=== PATIENT | female | born 1990 | race Caucasian/White ===

== ENCOUNTER 2018-01-06 18:31 | Inpatient (IN) | payer OTHER ==
[2018-01-06] MEDS ORDERED: Citric Acid/Sodium Citrate Solution 30 ML Cup PO ONE (19:22)
[2018-01-06] MEDS ORDERED: Sodium Chloride 0.9% 10 ML Syringe FLUSH PRN (19:22)
[2018-01-06] MEDS ORDERED: Sodium Chloride 0.9% 2.5 ML Syringe FLUSH PRN (19:22)
[2018-01-06] MEDS ORDERED: Oxytocin/0.9 % Sodium Chloride 30 UNIT/500 ML BAG IV SCH (19:30)
[2018-01-06] MEDS: Lactated Ringers 1,000 ML IV SCH ×2 (19:40→20:06)
[2018-01-06] MEDS ORDERED: Phenylephrine 1% 10 MG/ML SDV ONE (19:42)
[2018-01-06] MEDS ORDERED: ceFAZolin/Dextrose,Iso-Osmotic 2 GM/50 ML Duplex Bag IV ONE (19:42)
[2018-01-06] MEDS ORDERED: Morphine PF 1 MG/ML Amp ONE (19:46)
[2018-01-06] MEDS ORDERED: Oxytocin/0.9 % Sodium Chloride 30 UNIT/500 ML BAG ONE (19:51)
[2018-01-06] MEDS ORDERED: Citric Acid/Sodium Citrate Solution 30 ML Cup ONE (19:52)
--- NOTE | 2018-01-06 19:59 | PCM.PREANE ---
Preanesthetic Assessment - Procedure Proposed Procedure: - Anesthesia/Transfusion/Family Hx Anesthesia History: Prior Anesthesia Without Reaction Family History of Anesthesia Reaction: No - Review of Systems Other: Reports: None - Physical Assessment NPO Status Date: 01/06/18 NPO Status Time: 15:00 Height: 5 ft 2 in Weight: 78.471 kg ASA Class: 2 Mental Status: Alert & Oriented x3 Airway Class: Mallampati = 1 Dentition: Reports: Normal Dentition Thyro-Mental Finger Breadths: 3 Mouth Opening Finger Breadths: 3 ROM/Head Extension: Full - Lab Values: Laboratory Last Values WBC 11.53 K/uL (4.0-11.0) H 01/06/18 19:39 RBC 4.11 M/uL (4.30-5.90) L 01/06/18 19:39 Hgb 13.1 g/dL (12.0-16.0) 01/06/18 19:39 Hct 36.9 % (36.0-46.0) 01/06/18 19:39 MCV 89.8 fL (80.0-98.0) 01/06/18 19:39 MCH 31.9 pg (27.0-32.0) 01/06/18 19:39 MCHC 35.5 g/dL (31.0-37.0) 01/06/18 19:39 RDW Std Deviation 41.1 fl (28.0-62.0) 01/06/18 19:39 RDW Coeff of Osmar 13 % (11.0-15.0) 01/06/18 19:39 Plt Count 211 K/uL (150-400) 01/06/18 19:39 MPV 10.40 fL (7.40-12.00) 01/06/18 19:39 Nucleated RBC % 0.0 /100WBC 01/06/18 19:39 Nucleated RBCs # 0 K/uL 01/06/18 19:39 Membrane Rupture POSITIVE 01/06/18 18:58 - Allergies Allergies/Adverse Reactions: Allergies Allergy/AdvReac Type Severity Reaction Status Date / Time No Known Allergies Allergy Verified 07/09/15 12:05 - Blood Blood Available: Yes Product(s) Available: PRBC - Acknowledgements Anesthesia Type Planned: Spinal (with duramorph) Pt an Appropriate Candidate for the Planned Anesthesia: Yes Alternatives and Risks of Anesthesia Discussed w Pt/Guardian: Yes Pt/Guardian Understands and Agrees with Anesthesia Plan: Yes PreAnesthesia Questionnaire HEENT History: Reports: Impaired Vision Other HEENT History: wears glasses Cardiovascular History: Reports: None Respiratory History: Reports: None Gastrointestinal History: Reports: GERD Other Gastrointestinal History: during Genitourinary History: Reports: None GENETICS NURSE History: Reports: Musculoskeletal History: Reports: None Neurological History: Reports: None Psychiatric History: Reports: None Endocrine/Metabolic History: Reports: None Hematologic History: Reports: None Immunologic History: Reports: None Oncologic (Cancer) History: Reports: None Dermatologic History: Reports: None - Infectious Disease History Infectious Disease History: Reports: Chicken Pox - Past Surgical History HEENT Surgical History: Reports: Oral Surgery Female Surgical History: Reports: Section (x3) - HOME MEDS Home Medications: Home Meds Acetaminophen [Tylenol Extra Strength] 2 tab PO Q6H PRN 07/09/15 [History] Docusate Sodium 1 cap PO DAILY 07/09/15 [History] Pnv95/Iron Fum/Folic Acid [ Caplet] 1 tab PO DAILY 07/09/15 [History] Ranitidine HCl [Zantac 75] 1 tab PO DAILY 07/09/15 [History] Acetaminophen/oxyCODONE [Percocet 325-5 MG] 1 tab PO Q4H PRN #30 tablet [Rx] Ibuprofen [Motrin] 800 mg PO Q8H PRN #30 tablet 07/13/15 [Rx] - CURRENT (IN HOUSE) MEDS Current Meds: Current Medications Oxytocin/Sodium Chloride (Oxytocin 30 Unit/500 Ml-Ns) 30 unit in 500 mls @ 250 mls/hr IV TITRATE ROXY Lactated Ringer's (Ringers, Lactated) 1,000 mls @ 500 mls/hr IV BOLUS ROXY Last Admin: 01/06/18 19:40 Dose: 999 mls/hr Sodium Chloride (Saline Flush) 10 ml FLUSH ASDIRECTED PRN PRN Reason: Keep Vein Open Sodium Chloride (Saline Flush) 2.5 ml FLUSH ASDIRECTED PRN PRN Reason: Keep Vein Open Discontinued Medications Cefazolin Sodium/Dextrose (Ancef) Confirm Administered Dose 2 gm IV .STK-MED ONE Stop: 01/06/18 19:43 Citric Acid/Sodium Citrate (Bicitra Solution) 30 ml PO ONETIME ONE Stop: 01/06/18 19:23 Citric Acid/Sodium Citrate (Bicitra Solution) Confirm Administered Dose 30 ml .ROUTE .STK-MED ONE Stop: 01/06/18 19:53 Oxytocin/Sodium Chloride (Oxytocin 30 Unit/500 Ml-Ns) Confirm Administered Dose 30 unit in 500 mls @ as directed .ROUTE .STK-MED ONE Stop: 01/06/18 19:52 Morphine Sulfate (Duramorph Pf) Confirm Administered Dose 1 mg .ROUTE .STK-MED ONE Stop: 01/06/18 19:47 Phenylephrine HCl (Nakul-Synephrine) Confirm Administered Dose 10 mg .ROUTE .STK- MED ONE Stop: 01/06/18 19:43
[2018-01-06] MEDS ORDERED: Dexamethasone 4 MG/ML 5 ML MDV ONE (20:25)
[2018-01-06] MEDS ORDERED: Ondansetron 4 MG/2 ML SDV ONE (20:25)
[2018-01-06] MEDS ORDERED: diphenhydrAMINE 50 MG/ML SDV ONE (20:25)
[2018-01-06] MEDS ORDERED: Scopolamine 1.5 MG Transdermal Patch ONE (21:29)
[2018-01-06] MEDS ORDERED: fentaNYL 250 MCG/5 ML SDV ONE (21:44)
[2018-01-06] MEDS ORDERED: Nalbuphine 10 MG/1 ML Vial IVPUSH PRN (22:27)
[2018-01-06] MEDS ORDERED: Naloxone 0.4 MG/ML Syringe IVPUSH PRN (22:27)
[2018-01-06] MEDS ORDERED: diphenhydrAMINE 50 MG/ML SDV IVPUSH PRN ×2 (22:27→22:31)
[2018-01-06] MEDS ORDERED: fentaNYL 100 MCG/2 ML SDV IVPUSH PRN (22:28)
--- NOTE | 2018-01-06 22:29 | PCM.POSTAN ---
POST ANESTHESIA ASSESSMENT - MENTAL STATUS Mental Status: Alert, Oriented - RESPIRATORY Respiratory Status: Respiratory Rate WNL, Airway Patent, O2 Saturation Stable - CARDIOVASCULAR CV Status: Pulse Rate WNL, Blood Pressure Stable - GASTROINTESTINAL GI Status: No Symptoms - PAIN Pain Score: 0 - POST OP HYDRATION Hydration Status: Adequate & Stable
[2018-01-06] MEDS ORDERED: Lanolin 100% Cream 7 GM Tube TOP PRN (22:31)
[2018-01-06] MEDS ORDERED: Acetaminophen/oxyCODONE 325-5 MG Tab PO PRN ×2 (22:31)
[2018-01-06] MEDS ORDERED: Bisacodyl 10 MG Supp RECTAL PRN (22:31)
[2018-01-06] MEDS ORDERED: Ondansetron 4 MG/2 ML SDV IV PRN (22:31)
[2018-01-06] MEDS ORDERED: Measles, Mumps & Rubella Vaccine 0.5 ML SDV SUBCUT ONE (22:39)
[2018-01-06] MEDS: Ketorolac 30 MG/ML SDV IVPUSH SCH (22:42)
[2018-01-06] MEDS ORDERED: Lactated Ringers 1,000 ML IV SCH (22:45)
--- NOTE | 2018-01-06 22:52 | PCM.OPNOTE ---
- General Post-Op/Procedure Note Date of Surgery/Procedure: 01/06/18 Operative Procedure(s): Repeat section with bilateral salpingectomy Findings: Male , Wt 3690grams, Apgars 9 and 9. Thin lower uterine segment adherent to the parietal peritoneum anteriorly. Normal appearing ovaries bilaterally. The left fallopian tube (distal 1/3) was flushed on the left ovary and the complex in turn adherent to the left lateral uterine wall. Pre Op Diagnosis: 38 weeks and 4 days. PROM. Previous x 3. Desires premanent sterilization Post-Op Diagnosis: Same Anesthesia Technique: Spinal Primary Surgeon: Victorina Martinez Pathology: Right fallopian tube Part of the left fallopian( proximal 2/3) and the fimbrial end Fluid Replacement, Intraop: 2,400 Output, Urine Amount: 300 EBL in mLs: 1,000 Complications: None Condition: Good Free Text/Narrative:: Intake & Output 01/06/18 01/06/18 01/06/18 06:59 14:59 22:59 Output Total 300 Balance -300
--- NOTE | 2018-01-07 00:27 | OR ---
SURGEON: Victorina Martinez MD DATE OF PROCEDURE: 01/06/2018 PREOPERATIVE DIAGNOSES: 1. Term at 38 weeks and 4 days gestation. 2. Premature rupture of membrane. 3. Previous section x3. 4. Desire permanent sterilization. POSTOPERATIVE DIAGNOSES: 1. Term at 38 weeks and 4 days gestation. 2. Premature rupture of membrane. 3. Previous section x3. 4. Desire permanent sterilization. 5. Delivered. PROCEDURE: Low transverse section via Pfannenstiel with bilateral salpingectomy. ANESTHESIA: Spinal. ESTIMATED BLOOD LOSS: 1000 mL. IV FLUIDS: 2400 mL of crystalloid. URINE OUTPUT: 300 mL clear at the end of the procedure. COMPLICATIONS: None. DISPOSITION: Stable to recovery room. INDICATION: The patient is a 27-year-old, G5, P3-0-1-3, who presented to Labor and delivery at 38 weeks and 4 days gestation with a history of leakage of clear amniotic fluid, confirmed to be grossly ruptured and fingertip on vaginal examination. The patient has a history of three previous sections and was booked for repeat section on the 11 of January. She is also desirous of permanent sterilization in the form of bilateral salpingectomy, which has been approved by the ethics committee. Patient confirmed desire to proceed with the sterilization and she was consented appropriately for a repeat section with bilateral salpingectomy. FINDINGS: Male infant in cephalic presentation, delivered in left occipital transverse position. Clear amniotic fluid at delivery.No nuchal cord.Weight 3690g, score 9 and 9 at 1 and 5 minutes respectively.Dense adhesions between the rectus muscle and parietal peritoneum.Grossly normal appearing uterus with very thin lower segment with numerous varicosities. The lower uterine segment was adherent anteriorly to the parietal peritoneum. The distal one-third of the left tube was flushed onto the left ovary anteriorly and this complex was in- turn adherent to the left lateral uterine wall. Normal appearing right tube and normal ovaries bilaterally. DESCRIPTION OF PROCEDURE: The patient was taken to the operating room where spinal anesthesia was performed and found to be adequate. She received 2 g of Ancef. SCDs were placed. She was prepped and draped in the usual sterile fashion in dorsal supine position with a leftward tilt. Appropriate time-out was held. A Pfannenstiel skin incision was made with a scalpel along her old scar and carried through to the underlying layer of fascia with the Bovie. The fascia was incised in the midline and extended laterally with the Bovie and the Head.The superior aspect of this incision was grasped with Kassie clamps, elevated, and underlying rectus muscles were dissected off with the scalpel. Attention was turned to the inferior aspect of this incision which in similar fashion was dissected off with the scalpel. The rectus muscle was then elevated using two Allies on either side and was then in the midline using a scalpel until a window was created in the parietal peritoneum. Digital sweep on the line area revealed no adherent vital organ.This incision was then extended downward carefully and upwards and then subsequently stretched laterally manually. Once this was done, the lower uterine segment was noted to be thin and adherent to the parietal peritoneum.This adhesion was then carefully taken down with the Metzenbaum scissors and pushed further down creating somewhat of a bladder flap. The Billy O self-retaining retractor was then inserted into the peritoneal cavity. The lower uterine segment was then incised in a transverse fashion with the scalpel and extended upwards and downwards distally. The infant's head was then delivered atraumatically followed by the rest of the body without difficulty. The nostril and mouth were bulb suctioned on the abdomen. The cord was double clamped and cut and the infant was handed over to Dr. Hair, the ic engineer on-call. Cord blood and gas samples were obtained. The placenta was removed spontaneously via massage. The uterus was then cleaned of all clots and debris. The placenta bed was noted to be bleeding. This area was then overrun with 0 Vicryl sutures using interrupted stitches. It was hemostatic thereafter. The edges of the uterine incision were then identified and this layer was closed in 2 layers using 0 Vicryl suture. The first layer was performed in a running locked fashion and second imbricating layer was performed to obtain excellent hemostasis. A couple of [id number] hemostatic stitches were placed using 0 Vicryl sutures in the lower uterine segment to ligate the bleeding vessels. Once this was done, the hysterotomy site was found to have excellent hemostasis. The attempt to locate the tubes with the Billy retractor in situ was unsuccessful, so the Billy retractor was then removed and the uterus was exteriorized. Aforementioned findings of the left tube were noted. After confirming with the patient about her desire for her tubes to be removed, the right salpingectomy was performed using the Harmonic device. The vascular bed on the mesosalpinx on the right side had to be oversewn with 3-0 Vicryl suture to obtain excellent hemostasis. Attention was then turned to the left side with the aforementioned findings noted. The fimbrial end was then dissected off carefully and this was excised. Using Babcocks, I was able to trace the proximal 2/3 and then proceeded to perform a partial salpingectomy on the left side. The areas were found to be hemostatic. The uterus was then returned into the abdominal cavity after the gutters had been cleared of all clots and debris. Copious irrigation was performed. The peritoneal edges were found to be flushed onto the rectus muscle, so this area was closed en claudio using 2-0 Vicryl suture in a running fashion. The subfascial layer was found to have excellent hemostasis. The fascia was then closed with 0 Vicryl suture in a running fashion. Thus, subcuticular layer was made hemostatic with electrocautery. The skin was closed with subcu stitches with 4-0 Monocryl. The patient tolerated the procedure well. Sponge, instrument, and needle counts were correct at the end of the procedure. The patient was taken to recovery room in stable condition and the baby to the nursery in a stable condition. SHIKHA / MIRIAM /[id number] MTDD
[2018-01-07] MEDS: Ketorolac 30 MG/ML SDV IVPUSH SCH ×4 (04:55→23:06)
--- NOTE | 2018-01-07 07:59 | PCM.PNPP ---
- General Info Date of Service: 01/07/18 Functional Status: Reports: Pain Controlled, Tolerating Diet, Ambulating, Urinating - Review of Systems General: Denies: Fever, Weakness, Fatigue Pulmonary: Denies: Shortness of Breath, Pleuritic Chest Pain, Cough Cardiovascular: Denies: Chest Pain, Palpitations, Dyspnea on Exertion Gastrointestinal: Denies: Abdominal Pain Genitourinary: Denies: Dysuria - General Info Date of Service: 01/07/18 - Patient Data Vital Signs - Most Recent: Last Vital Signs Temp 36.7 C 01/07/18 04:40 Pulse 83 01/07/18 07:00 Resp 16 01/07/18 07:00 BP 115/59 L 01/07/18 04:40 Pulse Ox 99 01/07/18 07:00 Weight - Most Recent: 78.471 kg I&O - Last 24 Hours: Intake & Output 01/06/18 01/07/18 01/07/18 22:59 06:59 14:59 Intake Total 5000 500 Output Total 1700 900 Balance 3300 -400 Lab Results - Last 24 Hours: Laboratory Results - last 24 hr 01/06/18 01/06/18 01/06/18 Range/Units 18:58 19:39 19:39 WBC 11.53 H (4.0-11.0) K/uL RBC 4.11 L (4.30-5.90) M/uL Hgb 13.1 (12.0-16.0) g/dL Hct 36.9 (36.0-46.0) % MCV 89.8 (80.0-98.0) fL MCH 31.9 (27.0-32.0) pg MCHC 35.5 (31.0-37.0) g/dL RDW Std Deviation 41.1 (28.0-62.0) fl RDW Coeff of Osmar 13 (11.0-15.0) % Plt Count 211 (150-400) K/uL MPV 10.40 (7.40-12.00) fL Nucleated RBC % 0.0 /100WBC Nucleated RBCs # 0 K/uL Cord ABG pH (7.18-7.38) Cord ABG Base Excess (-10--2) Cord VBG pH (7.25-7.45) Cord VBG Base Excess (-10--2) Membrane Rupture POSITIVE Blood Type O POSITIVE Antibody Screen NEGATIVE 01/06/18 01/07/18 Range/Units 21:03 05:50 WBC (4.0-11.0) K/uL RBC (4.30-5.90) M/uL Hgb 9.4 L (12.0-16.0) g/dL Hct 27.0 L (36.0-46.0) % MCV (80.0-98.0) fL MCH (27.0-32.0) pg MCHC (31.0-37.0) g/dL RDW Std Deviation (28.0-62.0) fl RDW Coeff of Osmar (11.0-15.0) % Plt Count (150-400) K/uL MPV (7.40-12.00) fL Nucleated RBC % /100WBC Nucleated RBCs # K/uL Cord ABG pH 7.318 (7.18-7.38) Cord ABG Base Excess -3 (-10--2) Cord VBG pH 7.364 (7.25-7.45) Cord VBG Base Excess -5 (-10--2) Membrane Rupture Blood Type Antibody Screen Med Orders - Current: Current Medications Bisacodyl (Dulcolax) 10 mg RECTAL ONETIME PRN PRN Reason: Constipation Diphenhydramine HCl (Benadryl) 25 mg IVPUSH Q4H PRN PRN Reason: Itching Stop: 01/07/18 22:27 Diphenhydramine HCl (Benadryl) 25 mg IVPUSH Q6H PRN PRN Reason: Itching or Nausea Docusate Sodium (Colace) 100 mg PO BID [facility] Emollient Ointment (Lansinoh Hpa) 0 gm TOP ASDIRECTED PRN PRN Reason: Sore Nipples Fentanyl (Sublimaze) 25 - 50 mcg IVPUSH Q30M PRN PRN Reason: Pain Lactated Ringer's (Ringers, Lactated) 1,000 mls @ 125 mls/hr IV ASDIRECTED ROXY Ibuprofen (Motrin) 800 mg PO Q8H PRN PRN Reason: mild pain or fever Ketorolac Tromethamine (Toradol) 30 mg IVPUSH Q6H [facility] Stop: 01/07/18 22:46 Last Admin: 01/07/18 04:55 Dose: 30 mg Nalbuphine HCl (Nubain) 5 mg IVPUSH Q3H PRN PRN Reason: Pruritis Stop: 01/07/18 22:27 Naloxone HCl (Narcan) 0.1 mg IVPUSH ONETIME PRN PRN Reason: Other Stop: 01/07/18 22:28 Ondansetron HCl (Zofran) 4 mg IV Q4H PRN PRN Reason: Nausea/Vomiting Oxycodone/Acetaminophen (Percocet 325-5 Mg) 1 - 2 tab PO Q6H PRN PRN Reason: Pain Stop: 01/08/18 14:00 Oxycodone/Acetaminophen (Percocet 325-5 Mg) 1 tab PO Q4H PRN PRN Reason: Pain (moderate 4-6) Oxycodone/Acetaminophen (Percocet 325-5 Mg) 2 tab PO Q4H PRN PRN Reason: Pain (moderate 4-6) Discontinued Medications Cefazolin Sodium/Dextrose (Ancef) Confirm Administered Dose 2 gm IV .STK-MED ONE Stop: 01/06/18 19:43 Citric Acid/Sodium Citrate (Bicitra Solution) 30 ml PO ONETIME ONE Stop: 01/06/18 19:23 Last Admin: 01/06/18 22:17 Dose: Not Given Citric Acid/Sodium Citrate (Bicitra Solution) Confirm Administered Dose 30 ml .ROUTE .STK-MED ONE Stop: 01/06/18 19:53 Last Admin: 01/06/18 20:07 Dose: 30 ml Dexamethasone (Dexamethasone) Confirm Administered Dose 20 mg .ROUTE .STK-MED ONE Stop: 01/06/18 20:26 Diphenhydramine HCl (Benadryl) Confirm Administered Dose 50 mg .ROUTE .STK-MED ONE Stop: 01/06/18 20:26 Fentanyl (Sublimaze) Confirm Administered Dose 250 mcg .ROUTE .STK-MED ONE Stop: 01/06/18 21:45 Oxytocin/Sodium Chloride (Oxytocin 30 Unit/500 Ml-Ns) 30 unit in 500 mls @ 250 mls/hr IV TITRATE ROXY Lactated Ringer's (Ringers, Lactated) 1,000 mls @ 500 mls/hr IV BOLUS [facility] Last Infusion: 01/06/18 21:00 Dose: Infused Oxytocin/Sodium Chloride (Oxytocin 30 Unit/500 Ml-Ns) Confirm Administered Dose 30 unit in 500 mls @ as directed .ROUTE .STK-MED ONE Stop: 01/06/18 19:52 Measles/Mumps/Rubella Vaccine Live (M-M-R Ii Vaccine) 0.5 ml SUBCUT .ONCE ONE Stop: 01/06/18 22:40 Morphine Sulfate (Duramorph Pf) Confirm Administered Dose 1 mg .ROUTE .STK-MED ONE Stop: 01/06/18 19:47 Ondansetron HCl (Zofran) Confirm Administered Dose 4 mg .ROUTE .STK-MED ONE Stop: 01/06/18 20:26 Phenylephrine HCl (Nakul-Synephrine) Confirm Administered Dose 10 mg .ROUTE .STK- MED ONE Stop: 01/06/18 19:43 Scopolamine (Transderm-Scop) Confirm Administered Dose 1.5 mg .ROUTE .STK-MED ONE Stop: 01/06/18 21:30 Sodium Chloride (Saline Flush) 10 ml FLUSH ASDIRECTED PRN PRN Reason: Keep Vein Open Sodium Chloride (Saline Flush) 2.5 ml FLUSH ASDIRECTED PRN PRN Reason: Keep Vein Open - Interaction Infant Disposition, : in Room with Family Interaction: Holding Infant Feeding: Breastfed ; Nursed Well Support Person: - Recovery Exam Fundal Tone: Firm Fundal Level: At Umbilicus Fundal Placement: Midline Lochia Amount: Scant Lochia Color: Rubra/Red Bladder Status: Nonpalpable Urinary Elimination: Indwelling Catheter - Exam General: Alert, Oriented Neck: Supple Lungs: Clear to Auscultation, Normal Respiratory Effort Cardiovascular: Regular Rate, Regular Rhythm GI/Abdominal Exam: Normal Bowel Sounds, Soft, Non-Tender, No Mass Skin: Warm, Dry, Intact Psy/Mental Status: Alert - Problem List & Annotations (1) delivery delivered SNOMED Code(s): 560966942 Code(s): O82 - ENCOUNTER FOR DELIVERY WITHOUT INDICATION Status: Acute Current Visit: No - Problem List Review Problem List Initiated/Reviewed/Updated: Yes - Assessment Assessment:: POD #1 s/p RLTCS with bilateral salpingectomy. Minimal pain and lochia. Breast feeding well. Remove vaca today. - Plan Plan:: Continue routine post-op cares
[2018-01-07] MEDS: Docusate Sodium 100 MG Cap PO SCH ×2 (10:13→21:56)
[2018-01-07] MEDS: Acetaminophen/oxyCODONE 325-5 MG Tab PO PRN ×2 (15:35→21:56)
--- NOTE | 2018-01-07 17:47 | PCM48HPAN ---
Post Anesthesia Note - EVALUATION WITHIN 48HRS OF ANESTHETIC Vital Signs in Normal Range: Yes Patient Participated in Evaluation: Yes Respiratory Function Stable: Yes Airway Patent: Yes Cardiovascular Function Stable: Yes Hydration Status Stable: Yes Pain Control Satisfactory: Yes Nausea and Vomiting Control Satisfactory: Yes Mental Status Recovered: Yes Resp Rate: 17
[2018-01-08] MEDS ORDERED: Ibuprofen 800 MG Tab PO PRN (05:00)
[2018-01-08 08:38] VITALS: BP 116/67
[2018-01-08] MEDS: Docusate Sodium 100 MG Cap PO SCH (09:38)
--- NOTE | 2018-01-08 09:49 | PCM.PNPP ---
- General Info Date of Service: 01/08/18 Functional Status: Reports: Pain Controlled, Tolerating Diet, Ambulating, Urinating - Review of Systems General: Reports: No Symptoms HEENT: Reports: No Symptoms Pulmonary: Reports: No Symptoms Cardiovascular: Reports: No Symptoms Gastrointestinal: Reports: No Symptoms Genitourinary: Reports: No Symptoms Musculoskeletal: Reports: No Symptoms Skin: Reports: No Symptoms Neurological: Reports: No Symptoms Psychiatric: Reports: No Symptoms - Patient Data Vital Signs - Most Recent: Last Vital Signs Temp 36.4 C 01/08/18 08:37 Pulse 91 01/08/18 08:37 Resp 17 01/08/18 08:37 BP 116/67 01/08/18 08:37 Pulse Ox 98 01/08/18 08:37 Weight - Most Recent: 78.471 kg I&O - Last 24 Hours: Intake & Output 01/07/18 01/08/18 01/08/18 22:59 06:59 14:59 Intake Total 1400 Balance 1400 Med Orders - Current: Current Medications Bisacodyl (Dulcolax) 10 mg RECTAL ONETIME PRN PRN Reason: Constipation Diphenhydramine HCl (Benadryl) 25 mg IVPUSH Q6H PRN PRN Reason: Itching or Nausea Docusate Sodium (Colace) 100 mg PO BID [facility] Last Admin: 01/07/18 21:56 Dose: 100 mg Emollient Ointment (Lansinoh Hpa) 0 gm TOP ASDIRECTED PRN PRN Reason: Sore Nipples Fentanyl (Sublimaze) 25 - 50 mcg IVPUSH Q30M PRN PRN Reason: Pain Lactated Ringer's (Ringers, Lactated) 1,000 mls @ 125 mls/hr IV ASDIRECTED [facility] Ibuprofen (Motrin) 800 mg PO Q8H PRN PRN Reason: mild pain or fever Ondansetron HCl (Zofran) 4 mg IV Q4H PRN PRN Reason: Nausea/Vomiting Oxycodone/Acetaminophen (Percocet 325-5 Mg) 1 - 2 tab PO Q6H PRN PRN Reason: Pain Stop: 01/08/18 14:00 Last Admin: 01/07/18 21:56 Dose: 1 tab Oxycodone/Acetaminophen (Percocet 325-5 Mg) 1 tab PO Q4H PRN PRN Reason: Pain (moderate 4-6) Last Admin: 01/08/18 05:11 Dose: 1 tab Oxycodone/Acetaminophen (Percocet 325-5 Mg) 2 tab PO Q4H PRN PRN Reason: Pain (moderate 4-6) Discontinued Medications Cefazolin Sodium/Dextrose (Ancef) Confirm Administered Dose 2 gm IV .STK-MED ONE Stop: 01/06/18 19:43 Citric Acid/Sodium Citrate (Bicitra Solution) 30 ml PO ONETIME ONE Stop: 01/06/18 19:23 Last Admin: 01/06/18 22:17 Dose: Not Given Citric Acid/Sodium Citrate (Bicitra Solution) Confirm Administered Dose 30 ml .ROUTE .STK-MED ONE Stop: 01/06/18 19:53 Last Admin: 01/06/18 20:07 Dose: 30 ml Dexamethasone (Dexamethasone) Confirm Administered Dose 20 mg .ROUTE .STK-MED ONE Stop: 01/06/18 20:26 Diphenhydramine HCl (Benadryl) Confirm Administered Dose 50 mg .ROUTE .STK-MED ONE Stop: 01/06/18 20:26 Diphenhydramine HCl (Benadryl) 25 mg IVPUSH Q4H PRN PRN Reason: Itching Stop: 01/07/18 22:27 Fentanyl (Sublimaze) Confirm Administered Dose 250 mcg .ROUTE .STK-MED ONE Stop: 01/06/18 21:45 Oxytocin/Sodium Chloride (Oxytocin 30 Unit/500 Ml-Ns) 30 unit in 500 mls @ 250 mls/hr IV TITRATE [facility] Lactated Ringer's (Ringers, Lactated) 1,000 mls @ 500 mls/hr IV BOLUS [facility] Last Infusion: 01/06/18 21:00 Dose: Infused Oxytocin/Sodium Chloride (Oxytocin 30 Unit/500 Ml-Ns) Confirm Administered Dose 30 unit in 500 mls @ as directed .ROUTE .STK-MED ONE Stop: 01/06/18 19:52 Last Admin: 01/07/18 13:58 Dose: Not Given Ketorolac Tromethamine (Toradol) 30 mg IVPUSH Q6H [facility] Stop: 01/07/18 22:46 Last Admin: 01/07/18 23:06 Dose: 30 mg Measles/Mumps/Rubella Vaccine Live (M-M-R Ii Vaccine) 0.5 ml SUBCUT .ONCE ONE Stop: 01/06/18 22:40 Morphine Sulfate (Duramorph Pf) Confirm Administered Dose 1 mg .ROUTE .STK-MED ONE Stop: 01/06/18 19:47 Nalbuphine HCl (Nubain) 5 mg IVPUSH Q3H PRN PRN Reason: Pruritis Stop: 01/07/18 22:27 Last Admin: 01/07/18 10:14 Dose: 5 mg Naloxone HCl (Narcan) 0.1 mg IVPUSH ONETIME PRN PRN Reason: Other Stop: 01/07/18 22:28 Ondansetron HCl (Zofran) Confirm Administered Dose 4 mg .ROUTE .STK-MED ONE Stop: 01/06/18 20:26 Phenylephrine HCl (Nakul-Synephrine) Confirm Administered Dose 10 mg .ROUTE .STK- MED ONE Stop: 01/06/18 19:43 Scopolamine (Transderm-Scop) Confirm Administered Dose 1.5 mg .ROUTE .STK-MED ONE Stop: 01/06/18 21:30 Sodium Chloride (Saline Flush) 10 ml FLUSH ASDIRECTED PRN PRN Reason: Keep Vein Open Sodium Chloride (Saline Flush) 2.5 ml FLUSH ASDIRECTED PRN PRN Reason: Keep Vein Open - Interaction Infant Disposition, : in Room with Family Infant Interaction: Holding Infant Feeding: Breastfed Infant; Nursed Well Support Person: - Recovery Exam Fundal Tone: Firm Fundal Level: 1 Fingerbreadths Below Umbilicus Fundal Placement: Midline Lochia Amount: Scant Lochia Color: Rubra/Red Perineum Description: Intact, Minimal Bruising/Swelling Episiotomy/Laceration: None Bladder Status: Voiding Urinary Elimination: Voided - Exam General: Alert, Oriented Neck: Supple Lungs: Clear to Auscultation, Normal Respiratory Effort Cardiovascular: Regular Rate, Regular Rhythm GI/Abdominal Exam: Normal Bowel Sounds, Soft, Non-Tender Extremities: Normal Inspection, Normal Range of Motion, Non-Tender, No Pedal Edema Skin: Warm, Dry, Intact Wound/Incisions: Healing Well Neurological: No New Focal Deficit Psy/Mental Status: Alert - Problem List & Annotations (1) delivery delivered SNOMED Code(s): 042758455 Code(s): O82 - ENCOUNTER FOR DELIVERY WITHOUT INDICATION Status: Acute Current Visit: No - Problem List Review Problem List Initiated/Reviewed/Updated: Yes - Assessment Assessment:: POD #2 s/p RLTCS with bilateral salpingectomy. Pain controlled with oral medication, ambulation without assist and tolerating PO. Would like to go home today. - Plan Plan:: Dismiss to home today, discharge instructions reviewed. Reviewed findings at time of surgery of tubal adhesions, fimbria were removed. discussed option of getting HSG after 6 weeks
== END 2018-01-08 12:44 | disposition home or self-care (01) | DRG 785 ==
LOC: MW.OBCHECK 18:31 → MW.OB 18:41 → MW.OBCHECK 19:22 → OBSVTOIN 21:03 → MW.OB 23:00
PROVIDERS: ADMIT Obstetrics & Gynecology; ATTEND Obstetrics & Gynecology
PROC: 10D00Z1 Extraction of Products of Conception, Low, Open Approach (ICD-10-PCS; principal; 2018-01-06)
PROC: 0UT50ZZ Resection of Right Fallopian Tube, Open Approach (ICD-10-PCS; 2018-01-06)
PROC: 0UB60ZZ Excision of Left Fallopian Tube, Open Approach (ICD-10-PCS; 2018-01-06)
PROC: 6A550ZT Pheresis of Cord Blood Stem Cells, Single (ICD-10-PCS; 2018-01-06)
DX: O42.92 Full-term premature rupture of membranes, unspecified as to length of time between rupture and onset of labor (principal); O34.211 Maternal care for low transverse scar from previous cesarean delivery; Z3A.38 38 weeks gestation of pregnancy; Z37.0 Single live birth; Z30.2 Encounter for sterilization; Z67.40 Type O blood, Rh positive
CPT/HCPCS: 36415; 59025; 82803; 84112; 85014; 85018; 85027; 86850; 86900; 86901; A9270-GY; J0690; J1100; J1200; J1885; J2274; J2300; J2370; J2405; J3010; J7120

== ENCOUNTER 2025-01-22 06:20 | Day surgery (SDC) | payer BC ==
[2025-01-22 06:53] LABS: MEAN PLATELET VOLUME 9.5 fL (9.4-12.3); NRBC ABSOLUTE 0.00 K/uL (0.00-0.02); NRBC PERCENT 0.0 /100WBC (0.0-0.2); PLATELET COUNT,PLT 287 K/uL (150-400); RED BLOOD CELL COUNT 4.15 M/uL (4.10-5.30); WHITE BLOOD CELL COUNT,WBC 7.07 K/uL (3.9-11.3)
[2025-01-22] MEDS: Lactated Ringers 1,000 ML IV SCH (06:53)
[2025-01-22] MEDS ORDERED: Scopalamine 1mg/3day Transdermal Patch ONE (07:09)
[2025-01-22] MEDS ORDERED: fentaNYL 50 MCG/ML SDV IVPUSH PRN (07:11)
[2025-01-22] MEDS ORDERED: Albuterol 0.083% 2.5 MG/3 ML Neb Soln NEB PRN (07:11)
[2025-01-22] MEDS ORDERED: Naloxone 0.4 MG/ML SDV IVPUSH PRN (07:11)
[2025-01-22] MEDS ORDERED: Ondansetron 4 MG/2 ML SDV IVPUSH PRN (07:11)
[2025-01-22] MEDS ORDERED: fentaNYL 100 MCG/2 ML SDV ONE ×2 (07:22→08:14)
[2025-01-22] MEDS ORDERED: Propofol 200 MG/20 ML SDV ONE (07:22)
[2025-01-22] MEDS: Scopalamine 1mg/3day Transdermal Patch TOP ONE (07:24)
[2025-01-22] MEDS ORDERED: Ketorolac 30 MG/ML SDV ONE (07:43)
[2025-01-22] MEDS ORDERED: Dexamethasone 4 MG/ML 5 ML MDV ONE (07:43)
[2025-01-22] MEDS ORDERED: Ondansetron 4 MG/2 ML SDV ONE ×2 (07:43→08:23)
[2025-01-22 09:22] VITALS: BP 117/75; PULSE 64
== END 2025-01-22 09:35 | disposition home or self-care (01) ==
LOC: MW.SDS 06:20
PROVIDERS: ATTEND Obstetrics & Gynecology
DX: N85.8 Other specified noninflammatory disorders of uterus (principal); Z79.899 Other long term (current) drug therapy
CPT/HCPCS: 36415; 58563; 84703; 85027; A9270; C1729; J1100; J1308; J1885; J2405; J2704; J3010; J7120